=== PATIENT | female | born 1960 | race Hispanic/Latino ===

== ENCOUNTER 2019-02-09 15:31 | Outpatient (CLI) | payer BC ==
--- NOTE | 2019-02-09 16:03 | MMO ---
Bilateral MAMMO Bilat Screen [facility]. CLINICAL HISTORY: Patient is 58 years old and is seen for screening. The patient has no family history of breast cancer. The patient has no personal history of cancer. VIEWS: The views performed were: bilateral craniocaudal with tomosynthesis and bilateral mediolateral oblique with tomosynthesis. FILMS COMPARED: The present examination has been compared to prior imaging studies performed at 12/07/2010 and 01/03/2012. This study has been interpreted with the assistance of computer-aided detection. MAMMOGRAM FINDINGS: There are scattered fibroglandular densities. There are no suspicious masses, suspicious calcifications, or new areas of architectural distortion. IMPRESSION: THERE IS NO MAMMOGRAPHIC EVIDENCE OF MALIGNANCY. A ROUTINE FOLLOW-UP MAMMOGRAM IN 1 YEAR IS RECOMMENDED. THE RESULTS OF THIS EXAM WERE SENT TO THE PATIENT. ACR BI-RADS Category 1 - Negative MAMMOGRAPHY NOTE: 1. A negative mammogram report should not delay a biopsy if a dominant of clinically suspicious mass is present. 2. Approximately 10% to 15% of breast cancers are not detected by mammography. 3. Adenosis and dense breasts may obscure an underlying neoplasm. Reported by: KYLE HILL MD Electonically Signed: [id number]
== END 2019-02-09 15:32 | disposition home or self-care (01) ==
LOC: BICMAMMO 15:31
PROVIDERS: ATTEND Family Medicine
DX: Z12.31 Encounter for screening mammogram for malignant neoplasm of breast (principal)
CPT/HCPCS: 77063; 77067

== ENCOUNTER 2019-04-06 07:44 | Day surgery (SDC) | payer BC ==
[2019-04-05 16:21] VITALS: BMI 46.8
[2019-04-06] MEDS ORDERED: PROPOFOL 200 MG/20 ML VIAL ONE (10:11)
--- NOTE | 2019-04-06 14:38 | OP ---
DATE OF PROCEDURE: 04/06/2019 LINE TESTER SURGEON: None. PROCEDURE PERFORMED: Colonoscopy with snare polypectomy. INDICATION: A 58-year-old woman with a family history of colon cancer in her sister. This is the patient's first colonoscopy. MEDICATIONS: See Anesthesia record. FINDINGS: After discussion of the risks, benefits, and alternatives of the procedure, informed consent was obtained and witnessed. Pre-endoscopic cardiopulmonary examination was satisfactory. Time-out was performed before sedation was achieved. Sedation was achieved with Anesthesia assistance in the endoscopy unit. Digital rectal exam was performed, which was notable for an external hemorrhoid. A Pentax adult colonoscope was inserted into the anus and passed forward to the cecum in the usual fashion. The cecal base was identified by the appendiceal orifice as well as the ileocecal valve. The terminal ileum was not intubated. The colon was quite tortuous requiring loop reduction and manual pressure to reach the cecum. The colonoscope was then completely withdrawn in a gradual and circumferential manner, slowly, with careful examination of the entire colonic mucosa. The quality of the prep was good. In the transverse colon, there was a sessile polyp measuring 4 mm in diameter. This was completely removed with hot snare and retrieved for pathology. There was another polyp measuring 2 mm in diameter. This was completely removed with cold snare and retrieved for pathology. In the descending colon, there was a semipedunculated polyp measuring 1 cm in diameter. This was completely removed with hot snare and retrieved for pathology. There was mild diverticulosis in the sigmoid colon. Retroflexion of the rectum demonstrated small internal hemorrhoids. The colonoscope was completely withdrawn and the patient allowed to recover. The patient tolerated the procedure well. There were no immediate postprocedure complications. IMPRESSION: 1. A 4-mm transverse colon polyp, completely removed with hot snare and retrieved for pathology. 2. A 2-mm transverse colon polyp, completely removed with cold snare and retrieved for pathology. 3. Single 1-cm semi-pedunculated polyp in the descending colon, completely removed with hot snare and retrieved for pathology. 4. Tortuous colon. 5. Sigmoid diverticulosis. 6. Internal and external hemorrhoids. RECOMMENDATIONS: 1. Follow up pathology on the colon polyps. 2. Repeat colonoscopy based on pathology results. 3. Resume Xarelto tomorrow. Job ID: [id number]
== END 2019-04-06 11:55 | disposition home or self-care (01) ==
LOC: SDC 07:44
PROVIDERS: ATTEND Internal Medicine
PROC: 0DBL8ZX Excision of Transverse Colon, Via Natural or Artificial Opening Endoscopic, Diagnostic (ICD-10-PCS; principal; 2019-04-06)
PROC: 0DBM8ZX Excision of Descending Colon, Via Natural or Artificial Opening Endoscopic, Diagnostic (ICD-10-PCS; principal; 2019-04-06)
DX: Z12.11 Encounter for screening for malignant neoplasm of colon (principal); D12.3 Benign neoplasm of transverse colon; D12.4 Benign neoplasm of descending colon; Q43.8 Other specified congenital malformations of intestine; K57.30 Diverticulosis of large intestine without perforation or abscess without bleeding; K64.4 Residual hemorrhoidal skin tags; K64.8 Other hemorrhoids; J45.909 Unspecified asthma, uncomplicated; I48.91 Unspecified atrial fibrillation; K21.9 Gastro-esophageal reflux disease without esophagitis; I10 Essential (primary) hypertension; G47.30 Sleep apnea, unspecified; E55.9 Vitamin D deficiency, unspecified; Z80.0 Family history of malignant neoplasm of digestive organs; Z79.01 Long term (current) use of anticoagulants; Z79.899 Other long term (current) drug therapy; Z88.2 Allergy status to sulfonamides
CPT/HCPCS: 88305; J2704

== ENCOUNTER 2019-04-10 13:13 | Observation (INO) | payer BC ==
[2019-04-10 13:57] LABS: #Eosinphils 0.2 thou/uL (0.0-0.7); #Lymphocytes 1.5 thou/uL (1.20-3.40); #Monocytes 0.5 thou/uL (0.11-0.59); #Neutrophils 5.1 thou/uL (1.40-6.50); %Basophils 0.2 % (0.0-1.0); %Eosinophils 3.3 % (0.0-10.0); %Lymphocytes 20.8 % (21.0-51.0); %Monocytes 6.8 % (0.0-10.0); %Neutrophils 68.9 % (42.0-75.0); Hemoglobin 10.4 g/dL (12.0-16.0); Mean Corpuscular HGB CONC 31.1 g/dL (32.0-36.0); Mean Corpuscular Hemoglobin 23.9 pg (27.0-31.0); Platelet Count 353 thou/uL (130-400); RBC Distribution Width 15.8 % (11.5-14.5); Red Blood Cell (RBC) Count 4.35 mill/uL (4.20-5.40); White Blood Cell (WBC) Count 7.4 thou/uL (4.8-10.8)
[2019-04-10 14:03] LABS: INR-International Normal Ratio 1.1; PTT 31.1 SEC (22.9-36.1)
[2019-04-10 14:19] LABS: ALT (SGPT) 42 U/L (8-55); AST (SGOT) 45 U/L (5-34); Alkaline Phosphatase 74 U/L (40-110); Anion Gap 9 mmol/L (10-20); BUN (Urea Nitrogen) 8 mg/dL (9.8-20.1); Bilirubin, Total 0.4 mg/dL (0.2-1.2); Calc. Creatinine Clearance 0 mL/min (70-130); Calcium 8.9 mg/dL (7.8-10.44); Carbon Dioxide 30 mmol/L (22-29); Chloride 103 mmol/L (98-107); Estimated GFR-MDRD 68; Globulin 3.1 g/dL (2.4-3.5); Glucose 116 mg/dL (70-105); Potassium 3.9 mmol/L (3.5-5.1); Protein, Total 7.1 g/dL (6.0-8.3); Sodium 138 mmol/L (136-145)
[2019-04-10] MEDS ORDERED: GoLYTELY 4,000 ml Bottle PO SCH (17:45)
[2019-04-10] MEDS ORDERED: Ondansetron ODT 4 MG TAB SL PRN (19:19)
[2019-04-10] MEDS ORDERED: Ondansetron PF 4 MG/2 ML Vial IVP PRN (19:19)
[2019-04-10 19:24] VITALS: BMI 46.5
[2019-04-10] MEDS ORDERED: Sodium Chloride 0.9% 1,000 ML IV SCH (19:30)
[2019-04-10] MEDS ORDERED: Montelukast Sodium 10 mg Tablet PO SCH (21:00)
[2019-04-10 22:54] LABS: Hemoglobin 10.3 g/dL (12.0-16.0)
--- NOTE | 2019-04-10 23:39 | HP ---
CHIEF COMPLAINT: Bloody stool. HISTORY OF PRESENT ILLNESS: Ms. Shen is a 58-year-old female, who underwent an outpatient colonoscopy at this facility [address] Lance Barragan. She had 3 polyps removed, 2 small ones in the transverse colon and a 1 cm semipedunculated polyp removed from the descending colon. The patient simply resumed her Xarelto 20 mg daily, which she is taking for atrial fibrillation the following day. Since the colonoscopy, she reports having 4 to 5 bloody bowel movements daily consistent with some stool, but mostly with clots and blood. Her normal bowel function is one to twice daily with formed stool. She denies having any abdominal pain. There is no nausea, or vomiting. She has been eating normally. The patient denies any orthostatic symptoms such as lightheadedness, dizziness, or syncope. Because of the persistence of hematochezia, she presented to the ER for further evaluation. Initial vitals are normal. PAST MEDICAL HISTORY: 1. Hypertension. 2. Asthma. 3. Vitamin D deficiency. 4. GE reflux disease. 5. Sleep apnea. 6. Paroxysmal atrial fibrillation. 7. Status post total abdominal hysterectomy. 8. Status post cardiac ablation. SOCIAL HISTORY: The patient is . Lives with her . She does not smoke. She rarely infrequently consume alcohol. FAMILY HISTORY: Negative for any known GI problem, liver disease, or GI malignancy. CURRENT MEDICATIONS: At home include; 1. Sertraline 100 mg daily. 2. Xarelto 20 mg daily. 3. Levothyroxine 50 mcg daily. 4. Lisinopril/HCTZ 20/25 one daily. 5. Montelukast 10 mg daily. 6. Cartia 120 mg daily. 7. Omeprazole 20 mg daily. 8. ProAir inhaler as needed. 9. Flecainide 100 mg daily. 10. Potassium chloride ER 20 mEq daily. PHYSICAL EXAMINATION: VITAL SIGNS: Temperature is 98.2, blood pressure is 180/80, pulse of 88. GENERAL: She is alert, conversant, no distress. HEENT: Shows anicteric sclerae. Oropharynx is clear. NECK: Very supple. CARDIOVASCULAR: Shows normal S1, S2. Regular rate and rhythm. CHEST: Shows breath sounds. Clear to auscultation. No wheezing. ABDOMEN: Protuberant, soft, nontender. No organomegaly and difficult to assess secondary to size. There is no distention. No tympany. She has active bowel sounds. EXTREMITIES: Shows no edema. LABORATORY DATA: WBC is 7.4, hemoglobin 10.4, last hemoglobin in the system in 2014 was 13.4, hematocrit 33.5, MCV is 77, and platelet count 353. INR is 1.1, PTT 31.1. Electrolytes within normal range. Creatinine 0.86, BUN of 8, bilirubin 0.4, AST 45, ALT 42, alkaline phosphatase 74. ASSESSMENT: 1. A 5-day history of hematochezia, characterized as bloody stool and clots that is painless following her colonoscopy, likely from post polypectomy bleed. 2. Anemia, acute gastrointestinal blood loss. 3. Atrial fibrillation, on Xarelto, which was restarted the day after her colonoscopy. 4. Hypertension. 5. Atrial fibrillation. 6. Hypothyroidism. 7. Sleep apnea. PLAN: 1. We will place the patient under 22-hour observation. 2. Split-dose bowel prep, 2 L tonight and 2 L in a.m. 3. Colonoscopy tomorrow. 4. We will monitor her blood count. Job ID: [id number]
[2019-04-11] MEDS ORDERED: Potassium Chloride 20 MEQ TAB PO SCH (08:00)
[2019-04-11] MEDS ORDERED: FLU VACC QS2019-20(6MOS UP)/PF 60 MCG/0.5 ML SYRINGE IM ONE (09:00)
[2019-04-11] MEDS ORDERED: Lisinopril/Hydrochlorothiazide 20/25 mg Tablet PO SCH (09:00)
[2019-04-11] MEDS ORDERED: PROPOFOL 200 MG/20 ML VIAL ONE (09:41)
[2019-04-11 16:00] VITALS: BP 147/67; TEMP 98.5
--- NOTE | 2019-04-11 19:02 | OP ---
DATE OF PROCEDURE: 04/11/2019 PROCEDURE PERFORMED: Colonoscopy with control of hemorrhage. PREPROCEDURE DIAGNOSES: 1. Prior history of colon polyps removed on 03/06 from the descending and transverse colon. 2. Chronic anticoagulation with Xarelto last 2 days ago. 3. Bleeding suspected post polypectomy. POSTPROCEDURE DIAGNOSES: 1. Edema and in the sigmoid colon consistent with chronic diverticular disease. No acute diverticulitis seen. 2. Three polypectomy sites identified in the transverse descending colon. The middle one seemed to have the most likelihood of having previous bleeding. She needs to go back on anticoagulation. All three were clipped and closed. No bleeding ensued. RECOMMENDATIONS: 1. Resume Plavix. 2. Resume Xarelto tomorrow. 3. Advance diet. If the patient has no further bleeding, go home later today. ANESTHESIA: TIVA. PROCEDURE IN DETAIL: After the patient was informed of the risks, benefits, and possible complications of endoscopy including perforation, bleeding, reaction to medication, and aspiration, informed consent was obtained. The patient was brought to the endoscopy suite, where she was sedated in a gradual fashion. Once she was comfortable, rectal exam was performed. The endoscope with inserted into the anal canal through the colon. Cecum was identified by ileocecal valve and appendiceal orifice. The prep was good. There was no old blood in the colon. There was no fresh blood in the colon. Three polypectomy sites were identified in the transverse and descending colons. The middle one did have a little bit of a visible vessel, but no overt clot. All three were clipped. The middle one clipped with two clips and the other two clipped with one. They were all less than a centimeter in size. There was no bleeding. The scope was removed. Retroflexed views were normal. The patient tolerated the procedure well. There were no complications. Job ID: [id number]
== END 2019-04-11 17:26 | disposition home or self-care (01) ==
LOC: ERS 13:13 → 2SW 19:19
PROVIDERS: ADMIT Internal Medicine Gastroenterology; ATTEND Internal Medicine Gastroenterology
PROC: 0W3P8ZZ Control Bleeding in Gastrointestinal Tract, Via Natural or Artificial Opening Endoscopic (ICD-10-PCS; principal; 2019-04-11)
DX: K92.1 Melena (principal); D62 Acute posthemorrhagic anemia; K21.9 Gastro-esophageal reflux disease without esophagitis; I10 Essential (primary) hypertension; E03.9 Hypothyroidism, unspecified; J45.909 Unspecified asthma, uncomplicated; G47.33 Obstructive sleep apnea (adult) (pediatric); I48.0 Paroxysmal atrial fibrillation; Z79.01 Long term (current) use of anticoagulants; Z79.899 Other long term (current) drug therapy; Z86.010 Personal history of colon polyps; Z88.2 Allergy status to sulfonamides
CPT/HCPCS: 36415; 80053; 85014; 85018; 85025; 85610; 85730; 90471; 90686; 99285; G0008; G0378; J2704

== ENCOUNTER 2019-04-19 12:40 | Outpatient (CLI) | payer BC ==
--- NOTE | 2019-04-19 12:52 | RAD ---
Chest 2 views HISTORY: Dyspnea. COMPARISON: 06/10/2014. FINDINGS: Cardiac silhouette is unremarkable. Shallow inspiration accentuates pulmonary markings. Med iastinum is midline. No lobar consolidation, pneumothorax, or pleural fluid evident. Degenerative changes of the thoracic spine on the lateral view. IMPRESSION: No active cardiopulmonary abnormalities are demonstrated.
== END 2019-04-19 12:41 | disposition home or self-care (01) ==
LOC: RAD 12:40
PROVIDERS: ATTEND Internal Medicine Pulmonary Disease
DX: R06.00 Dyspnea, unspecified (principal)
CPT/HCPCS: 71046

== ENCOUNTER 2022-04-15 14:44 | Outpatient (CLI) | payer BC ==
[2022-04-15 16:39] LABS: #Monocytes 0.4 10x3/uL (0.0-1.1); #Neutrophils 9.2 10x3/uL (1.5-8.4); %Basophils 0.3 % (0.0-2.0); %Eosinophils 0.2 % (0.0-6.0); %Lymphocytes 10.3 % (18.0-47.0); %Monocytes 3.4 % (0.0-10.0); %Neutrophils 85.2 % (40.0-75.0); Hemoglobin 11.6 g/dL (12.0-15.5); Mean Corpuscular HGB CONC 31.8 g/dL (32.0-36.0); Mean Corpuscular Volume 81.8 fl (81.6-98.3); Mean Platelet Volume 10.1 fl (7.4-10.4); Platelet Count 391 10x3/uL (150-450); RBC Distribution Width 13.8 % (11.5-14.5); Red Blood Cell (RBC) Count 4.46 10x6/uL (3.90-5.03); White Blood Cell (WBC) Count 10.8 10x3/uL (3.5-10.5)
[2022-04-15 16:46] LABS: Anion Gap 14 mmol/L (10-20); BUN (Urea Nitrogen) 13 mg/dL (9.8-20.1); Calc. Creatinine Clearance 0 mL/min (70-130); Calcium 9.3 mg/dL (7.8-10.44); Carbon Dioxide 29 mmol/L (22-29); Chloride 100 mmol/L (98-107); Estimated GFR 100; Glucose 112 mg/dL (70-105); Potassium 4.6 mmol/L (3.5-5.1); Sodium 138 mmol/L (136-145)
== END 2022-04-15 14:45 | disposition home or self-care (01) ==
LOC: LABBT 14:44
PROVIDERS: ATTEND Specialist
DX: Z01.818 Encounter for other preprocedural examination (principal); Z20.822 Contact with and (suspected) exposure to COVID-19
CPT/HCPCS: 80048; 85025; 87811; 93005; 93010

== ENCOUNTER 2022-04-20 10:23 | Day surgery (SDC) | payer BC ==
[2022-04-19 12:44] VITALS: BMI 43.5
[2022-04-20] MEDS ORDERED: Sodium Chloride 0.9% 0 ML ONE (10:53)
[2022-04-20] MEDS ORDERED: CEFAZOLIN 2 GM VIAL ONE ×2 (10:53→12:58)
[2022-04-20] MEDS ORDERED: Acetaminophen 500 MG TAB ONE (10:53)
[2022-04-20] MEDS ORDERED: fentaNYL PF 100 MCG/2 ML SYRINGE ONE ×2 (12:56)
[2022-04-20] MEDS ORDERED: Ketorolac Tromethamine 30 MG/ML VIAL ONE (12:58)
[2022-04-20] MEDS ORDERED: Sodium Chloride 0.9% 100 ML ONE (12:58)
[2022-04-20] MEDS ORDERED: Bupivacaine/Epinephrine 0.25% 30 ML VIAL ONE (13:01)
[2022-04-20] MEDS ORDERED: ePHEDrine 50 MG/ML VIAL ONE (13:16)
[2022-04-20] MEDS ORDERED: PROPOFOL 200 MG/20 ML VIAL ONE (13:16)
[2022-04-20] MEDS ORDERED: Dexamethasone 20 MG/5 ML VIAL ONE (13:16)
[2022-04-20] MEDS ORDERED: Ondansetron PF 4 MG/2 ML Vial ONE (13:16)
[2022-04-20] MEDS ORDERED: Rocuronium Bromide 10 MG/ML (10ML VIAL) ONE (13:16)
[2022-04-20] MEDS ORDERED: SUGAMMADEX SODIUM 200 MG/2 ML VIAL ONE (14:09)
[2022-04-20] MEDS ORDERED: FENTANYL 50 MCG/ML 1 ML VIAL ONE (14:51)
[2022-04-20] MEDS ORDERED: HYDROcodone/Acetaminophen 5/325 mg Tablet ONE (16:04)
== END 2022-04-20 16:41 | disposition home or self-care (01) ==
LOC: SDC 10:23
PROVIDERS: ATTEND Specialist
PROC: 0JB70ZZ Excision of Back Subcutaneous Tissue and Fascia, Open Approach (ICD-10-PCS; principal; 2022-04-20)
DX: D17.1 Benign lipomatous neoplasm of skin and subcutaneous tissue of trunk (principal); I10 Essential (primary) hypertension; E78.2 Mixed hyperlipidemia; K21.9 Gastro-esophageal reflux disease without esophagitis; G47.30 Sleep apnea, unspecified; E66.01 Morbid (severe) obesity due to excess calories; Z68.41 Body mass index [BMI] 40.0-44.9, adult; Z79.01 Long term (current) use of anticoagulants; Z79.890 Hormone replacement therapy; Z79.899 Other long term (current) drug therapy; Z88.0 Allergy status to penicillin; Z88.2 Allergy status to sulfonamides
CPT/HCPCS: 88304; J1100; J1885; J2405; J2704; J3010; J3490